=== PATIENT | female | born 1990 | race Caucasian/White ===

== ENCOUNTER 2019-12-24 12:06 | Emergency (ER) | payer OTHER, SELFPAY ==
[2019-12-24 12:46] LABS: Urine Blood 2+ (NEG); Urine Glucose NEGATIVE (NEG); Urine Protein 2+ (NEG); Urine Specific Gravity 1.015 (1.005-1.030); Urine pH 5.5 (5.0-7.0)
[2019-12-24] MEDS ORDERED: MORPHINE 4 MG/ML SYR ONE ×2 (13:07→15:09)
[2019-12-24] MEDS ORDERED: ONDANSETRON 4 MG/2 ML VIAL ONE ×2 (13:07→15:09)
[2019-12-24] MEDS ORDERED: NA CHLORIDE 0.9% 1,000 ML ONE (13:08)
[2019-12-24 13:12] LABS: Absolute Lymphocytes (CBC) 1.5 K/uL (0.7-4.9); Basophils % 0.2 % (0-1.3); Hematocrit 38.3 % (36.0-45.0); MPV 8.4 fL (7.6-11.3); RBC Red Blood Cell Count 4.56 M/uL (3.86-4.86)
[2019-12-24 13:31] LABS: Urine Bacteria LOADED /HPF (<20); Urine Culture Reflex Order REFLEXED; Urine RBC <5 /HPF (NONE SEEN)
[2019-12-24 13:31] LABS: Albumin 2.9 g/dL (3.4-5.0); Bilirubin Direct 0.4 mg/dL (0-0.2); Bilirubin Total 0.7 mg/dL (0.2-1.0); Potassium 3.1 mmol/L (3.5-5.1); Protein, Total 7.7 g/dL (6.4-8.2)
[2019-12-24] MEDS ORDERED: POTASSIUM CL SA 10 MEQ TAB PO ONE ×2 (13:51→13:53)
[2019-12-24] MEDS ORDERED: CEFTRIAXONE/SWI 1gm 1 GM/10 ML SYR ONE (13:51)
--- NOTE | 2019-12-24 13:52 | RAD REPORT ---
EXAM DESCRIPTION: CTAbdomen Pelvis W Contrast - 12/24/2019 1:40 pm CLINICAL HISTORY: Abdominal pain. ABD PAIN COMPARISON: No comparisons TECHNIQUE: Biphasic CT imaging of the abdomen and pelvis was performed with 100 ml non-ionic IV cont rast. All CT scans are performed using dose optimization technique as appropriate and may include automated exposure control or mA/KV adjustment according to patient size. FINDINGS: Subsegmental atelectasis is present in both lung bases. The liver, spleen, pancreas, adrenal glands and left kidney are within normal limits. The right kidne y is enlarged with areas of cortical edema most compatible with pyelonephritis. No perinephric absces s. No bowel obstruction, free air, free fluid or abscess. The appendix is normal. No evidence of signi ficant lymphadenopathy. No suspicious bony findings. IMPRESSION: Right-sided pyelonephritis without abscess.
--- NOTE | 2019-12-24 14:19 | EDPHYS ---
Physician Documentation [facility] Name: Kiki Garcia Age: 29 yrs Sex: Female : 1990 Arrival Date: 12/24/2019 Time: 12:13 Bed 15 Private MD: ED Physician Pawel Mcpherson HPI: 12/23 14:57 This 29 yrs old Female presents to ER via Ambulatory with complaints of kb Fever, Chills. 14:58 The patient complains of pain in the right flank. The pain does not radiate. Onset: The kb symptoms/episode began/occurred Onset: The symptoms/episode began/occurred 4 day(s) ago. The patient has not recently seen a physician. 14:58 Modifying factors: The symptoms are alleviated by nothing. the symptoms are aggravated kb by nothing. Associated signs and symptoms: Pertinent positives: dysuria, fever, urinary frequency, nausea, vomiting. Severity of pain: At its worst the pain was moderate in the emergency department the pain is unchanged. The patient has not experienced similar symptoms in the past. 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 - Social history:: Smoking status: Patient reports the use of cigarette tobacco products, smokes one pack cigarettes per day. ROS: 14:56 Cardiovascular: Negative for chest pain, palpitations, and edema, Respiratory: Negative kb for shortness of breath, cough, wheezing, and pleuritic chest pain, Abdomen/GI: Negative for abdominal pain, nausea, vomiting, diarrhea, and constipation, MS/Extremity: Negative for injury and deformity, Skin: Negative for injury, rash, and discoloration, Neuro: Negative for headache, weakness, numbness, tingling, and seizure. 14:56 Constitutional: Positive for chills, fatigue, fever, malaise. 14:56 Abdomen/GI: Positive for abdominal pain, Negative for nausea, vomiting, and diarrhea. 14:56 : Positive for urinary symptoms, flank pain, urinary frequency, small amounts, burning with urination. Exam: 14:57 Constitutional: This is a well developed, well nourished patient who is awake, alert, kb and in no acute distress. Head/Face: Normocephalic, atraumatic. Chest/axilla: Normal chest wall appearance and motion. Nontender with no deformity. No lesions are appreciated. Cardiovascular: Regular rate and rhythm with a normal S1 and S2. No gallops, murmurs, or rubs. Normal PMI, no JVD. No pulse deficits. Respiratory: Lungs have equal breath sounds bilaterally, clear to auscultation and percussion. No rales, rhonchi or wheezes noted. No increased work of breathing, no retractions or nasal flaring. Abdomen/GI: Soft, non-tender, with normal bowel sounds. No distension or tympany. No guarding or rebound. No evidence of tenderness throughout. Skin: Warm, dry with normal turgor. Normal color with no rashes, no lesions, and no evidence of cellulitis. MS/ Extremity: Pulses equal, no cyanosis. Neurovascular intact. Full, normal range of motion. Neuro: Awake and alert, GCS 15, oriented to person, place, time, and situation. Cranial nerves II-XII grossly intact. Motor strength 5/5 in all extremities. Sensory grossly intact. Cerebellar exam normal. Normal gait. 14:57 Back: CVA tenderness, that is moderate, is noted on the right. Vital Signs: 12:25 BP 105 / 72; Pulse 108; Resp 20; Temp 98.4(O); Pulse Ox 100% on R/A; Weight 79.83 kg em (R); Height 5 ft. 5 in. (165.10 cm) (R); Pain 6/10; 13:24 BP 103 / 64; Pulse 100; Resp 18; Pulse Ox 99% ; ll1 15:20 BP 92 / 52; Pulse 88; Resp 17; Temp 99.0; Pulse Ox 100% ; Pain 1/10; ll1 12:25 Body Mass Index 29.29 (79.83 kg, 165.10 cm) em MDM: 12:34 Patient medically screened. kb 14:17 Data reviewed: vital signs, nurses notes. Data interpreted: Pulse oximetry: on room air kb is 99 %. Interpretation: normal. Counseling: I had a detailed discussion with the patient and/or guardian regarding: the historical points, exam findings, and any diagnostic results supporting the discharge/admit diagnosis, lab results, radiology results, the need for outpatient follow up, a family practitioner, to return to the emergency department if symptoms worsen or persist or if there are any questions or concerns that arise at home. ED course: Pt tolerating PO intake. Educated to take medications and prescribed and return if symptoms worsen or she is unable to tolerate antibiotics. 12/23 12:40 Order name: Urine Microscopic Only; Complete Time: 13:32 kb 12/23 12:44 Order name: Urine Dipstick--Ancillary (enter results); Complete Time: 12:48 bd 12/23 12:44 Order name: Urine --Ancillary (enter results); Complete Time: 12:48 bd 12/23 12:45 Order name: Basic Metabolic Panel; Complete Time: 13:32 kb 12/23 12:45 Order name: CBC with Diff; Complete Time: 13:19 kb 12/23 12:45 Order name: Hepatic Function; Complete Time: 13:32 kb 12/23 12:45 Order name: Lipase; Complete Time: 13:32 kb 12/23 13:20 Order name: CT Abd/Pelvis - IV Contrast Only; Complete Time: 13:56 kb 12/23 13:32 Order name: Urine Culture EDMS 12/23 12:40 Order name: Urine Test (obtain specimen); Complete Time: 12:42 kb 12/23 12:40 Order name: Urine Dipstick-Ancillary (obtain specimen); Complete Time: 12:42 kb 12/23 12:45 Order name: IV Saline Lock; Complete Time: 13:01 kb 12/23 12:45 Order name: Labs collected and sent; Complete Time: 13:01 kb 12/23 13:56 Order name: PO challenge; Complete Time: 15:01 kb Administered Medications: 13:23 Drug: NS 0.9% 1000 ml Route: IV; Rate: 1000 ml; Site: right antecubital; ll1 15:22 Follow up: Response: No adverse reaction; RASS: Alert and Calm (0); IV Status: ll1 Completed infusion; IV Intake: 1000ml 13:23 Drug: Zofran (Ondansetron) 4 mg Route: IVP; Site: right antecubital; ll1 13:51 Follow up: Response: No adverse reaction; RASS: Alert and Calm (0) ll1 13:23 Drug: morphine 4 mg Route: IVP; Site: right antecubital; 1 13:51 Follow up: Response: No adverse reaction; Pain is decreased; RASS: Alert and Calm (0) [facility] 13:48 Drug: Rocephin 1 grams Route: IV; Rate: calculated rate; Site: right antecubital; 1 15:22 Follow up: Response: No adverse reaction; RASS: Alert and Calm (0); IV Status: 1 Completed infusion; IV Intake: 10ml 13:48 Drug: Potassium Chloride 40 mEq Route: PO; 1 15:23 Follow up: Response: No adverse reaction; RASS: Alert and Calm (0) [facility] 15:01 Drug: Zofran (Ondansetron) 4 mg Route: IVP; Site: right antecubital; 1 15:23 Follow up: Response: No adverse reaction; Nausea is decreased; RASS: Alert and Calm (0) [facility] 15:01 Drug: morphine 4 mg Route: IVP; Site: right antecubital; [facility] 15:23 Follow up: Response: No adverse reaction; Pain is decreased; RASS: Alert and Calm (0) [facility] Disposition: 12/24/19 14:19 Discharged to Home. Impression: Acute tubulo-interstitial nephritis. - Condition is Stable. - Discharge Instructions: Pyelonephritis, Adult, [id number]. - Prescriptions for Zofran 4 mg Oral Tablet - take 1 tablet by ORAL route every 6 hours As needed; 20 tablet. cefpodoxime 200 mg Oral Tablet - take 1 tablet by ORAL route every 12 hours for 10 days with food; 20 tablet. - Medication Reconciliation Form, Thank You Letter, Antibiotic Education, Prescription Opioid Use, Work release form form. - Follow up: Emergency Department; When: As needed; Reason: Worsening of condition. Follow up: Private Physician; When: 2 - 3 days; Reason: Recheck today's complaints, Continuance of care, Re-evaluation by your physician. Addendum: 12/26/2019 07:15 Co-signature as Attending Physician, Pawel Mcpherson MD. r n Signatures: Dispatcher [employer] Fatemeh Randhawa, BRIANA-C PET[employer] PLANT OPERATOR-Gen Ram, RN RN em Mcpherson, Pawel, MD MD rn Shane, Lynsay, RN RN ll1 Corrections: (The following items were deleted from the chart) 12/23 14:58 14:58 Onset: The symptoms/episode began/occurred [facility] 15:25 14:19 12/24/2019 14:19 Discharged to Home. Impression: Acute tubulo-interstitial ll1 nephritis. Condition is Stable. Forms are Medication Reconciliation Form, Thank You Letter, Antibiotic Education, Prescription Opioid Use. Follow up: Emergency Department; When: As needed; Reason: Worsening of condition. Follow up: Private Physician; When: 2 - 3 days; Reason: Recheck today's complaints, Continuance of care, Re-evaluation by your physician. kb
--- NOTE | 2019-12-24 14:19 | ER ---
Nurse's Notes [facility] Name: Daniele Garcia Age: 29 yrs Sex: Female : 1990 Arrival Date: 12/24/2019 Time: 12:13 Bed 15 Private MD: Diagnosis: Acute tubulo-interstitial nephritis Presentation: 12/23 12:25 Chief complaint: Patient states: fever, nausea, burning with urination for about 4 em days, also reports right flank pain. Coronavirus screen: Client denies travel out of the [place] in the last 14 days. Ebola Screen: Patient negative for fever greater than or equal to 101.5 degrees Fahrenheit, and additional compatible Ebola Virus Disease symptoms Patient denies exposure to infectious person. Patient denies travel to an Ebola-affected area in the 21 days before illness onset. No symptoms or risks identified at this time. Initial Sepsis Screen: Does the patient meet any 2 criteria? HR > 90 bpm. No. Patient's initial sepsis screen is negative. Does the patient have a suspected source of infection? Yes: Dysuria/Frequency/Urgency/UTI. Risk Assessment: Do you want to hurt yourself or someone else? Patient reports no desire to harm self or others. Onset of symptoms was December 20, 2019. 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 - Social history:: Smoking status: Patient reports the use of cigarette tobacco products, smokes one pack cigarettes per day. Screenin:24 Abuse screen: Denies threats or abuse. Nutritional screening: No deficits noted. ll1 Tuberculosis screening: No symptoms or risk factors identified. Fall Risk IV access (20 points). Gait- Weak (10 pts.). Total Sullivan Fall Scale indicates Low Risk Score (25-44 pts). Fall prevention measures have been instituted. Side Rails Up X 2 Frequent Obs/Assesments occuring Family Present and informed to notify staff if they need to leave bedside As available Patient and Family Educated on Fall Prevention Program and strategies. Assessment: 13:15 General: Appears uncomfortable, Behavior is calm, cooperative. Pain: Complains of pain ll1 in right flank Pain currently is 6 out of 10 on a pain scale. Quality of pain is described as aching. Neuro: No deficits noted. Cardiovascular: No deficits noted. Respiratory: No deficits noted. GI: Abdomen is flat, Bowel sounds present X 4 quads. Abd is soft and non tender X 4 quads. Reports lower abdominal pain, nausea. : Urine is cloudy, Reports burning with urination. 14:15 Reassessment: Patient is alert, oriented x 3, equal unlabored respirations, skin ll1 warm/dry/pink. Patient is alert/active/playful, equal unlabored respirations, skin warm/dry/pink. Patient states feeling better. 15:12 Reassessment: Patient is alert, oriented x 3, equal unlabored respirations, skin ll1 warm/dry/pink. Patient is alert/active/playful, equal unlabored respirations, skin warm/dry/pink. Vital Signs: 12:25 BP 105 / 72; Pulse 108; Resp 20; Temp 98.4(O); Pulse Ox 100% on R/A; Weight 79.83 kg em (R); Height 5 ft. 5 in. (165.10 cm) (R); Pain 6/10; 13:24 BP 103 / 64; Pulse 100; Resp 18; Pulse Ox 99% ; ll1 15:20 BP 92 / 52; Pulse 88; Resp 17; Temp 99.0; Pulse Ox 100% ; Pain 1/10; ll1 12:25 Body Mass Index 29.29 (79.83 kg, 165.10 cm) em ED Course: 12:13 Patient arrived in ED. ds1 12:21 Fatemeh Gibson [facility]C [facility] kb 12:21 Pawel Mcpherson MD is Attending Physician. kb 12:27 Triage completed. em 12:29 Arm band placed on. em 12:34 Magdy Lynn, ANGELO is Primary Nurse. ll1 12:41 Placed in gown. Bed in low position. Call light in reach. Side rails up X 1. Warm jp3 blanket given. Verbal reassurance given. Pulse ox on. NIBP on. 12:41 Urine collected: clean catch specimen, clear, daniele colored. Patient maintains SpO2 jp3 saturation greater than 95% on room air. 12:55 Initial lab(s) drawn, by me, sent to lab. Inserted saline lock: 20 gauge in right jp3 antecubital area, using aseptic technique. Blood collected. 13:40 CT Abd/Pelvis - IV Contrast Only In Process Unspecified. EDMS 15:25 No provider procedures requiring assistance completed. IV discontinued, intact, ll1 bleeding controlled, No redness/swelling at site. Pressure dressing applied. Administered Medications: 13:23 Drug: NS 0.9% 1000 ml Route: IV; Rate: 1000 ml; Site: right antecubital; ll1 15:22 Follow up: Response: No adverse reaction; RASS: Alert and Calm (0); IV Status: ll1 Completed infusion; IV Intake: 1000ml 13:23 Drug: Zofran (Ondansetron) 4 mg Route: IVP; Site: right antecubital; 1 13:51 Follow up: Response: No adverse reaction; RASS: Alert and Calm (0) ll1 13:23 Drug: morphine 4 mg Route: IVP; Site: right antecubital; 1 13:51 Follow up: Response: No adverse reaction; Pain is decreased; RASS: Alert and Calm (0) 1 13:48 Drug: Rocephin 1 grams Route: IV; Rate: calculated rate; Site: right antecubital; ll1 15:22 Follow up: Response: No adverse reaction; RASS: Alert and Calm (0); IV Status: ll1 Completed infusion; IV Intake: 10ml 13:48 Drug: Potassium Chloride 40 mEq Route: PO; ll1 15:23 Follow up: Response: No adverse reaction; RASS: Alert and Calm (0) ll1 15:01 Drug: Zofran (Ondansetron) 4 mg Route: IVP; Site: right antecubital; ll1 15:23 Follow up: Response: No adverse reaction; Nausea is decreased; RASS: Alert and Calm (0) ll1 15:01 Drug: morphine 4 mg Route: IVP; Site: right antecubital; ll1 15:23 Follow up: Response: No adverse reaction; Pain is decreased; RASS: Alert and Calm (0) [facility] Intake: 15:22 IV: 1000ml; Total: 1000ml. ll1 15:22 IV: 10ml; Total: 1010ml. ll1 Outcome: 14:19 Discharge ordered by MD. giordano 15:25 Patient left the ED. ll1 15:25 Discharged to home ambulatory. ll1 15:25 Condition: stable 15:25 Discharge instructions given to patient, Instructed on discharge instructions, follow up and referral plans. medication usage, Demonstrated understanding of instructions, follow-up care, medications, Prescriptions given X 2. Signatures: Dispatcher [employer] Fatemeh Randhawa, PRESENTATION TEAM MEMBER-C PRESENTATION TEAM MEMBER-Gen Ram, RN RN Chelsey Cartagena ds1 Nain Rodriguez jp3 Magdy Lynn, ANGELO RN ll1
[2019-12-24 15:30] VITALS: TEMP 98.4
[2019-12-24 15:31] VITALS: BP 103/64; O2SAT 99
== END 2019-12-24 15:25 | disposition home or self-care (01) ==
LOC: ER 12:06
DX: N10 Acute pyelonephritis (principal); F17.210 Nicotine dependence, cigarettes, uncomplicated; Z88.5 Allergy status to narcotic agent
CPT/HCPCS: 36415; 74177; 80048; 80076; 81003; 81015; 81025; 83690; 85025; 87077; 87086; 87088; 87186; 96365; 96366; 96375; 99284; J0696; J2405; J7030; Q9967